=== PATIENT | male | born 1985 | race Caucasian/White ===

== ENCOUNTER 2023-04-09 12:37 | Inpatient (IN) ==
[2023-04-09 13:23] LABS: ABS Eosinophils 0.1 10^3/uL (0.0-0.5); ABS Lymphocytes 1.2 10^3/uL (1.0-4.8); ABS Monocytes 0.3 10^3/uL (0.0-1.1); ABS Neutrophils 4.1 10^3/uL (1.5-7.6); ABS Nucleated RBC 0.01 10^3/ul; Eosinophil % 2.3 %; Hematocrit 41.6 % (38-53); Hemoglobin 14.4 g/dL (13.2-16.3); Lymphocyte % 20.2 %; Mean Corpuscular Hemoglobin 31.8 pg (27-33); Mean Corpuscular Hgb Conc 34.7 g/dL (31-36); Mean Corpuscular Volume 91.6 fL (80-97); Mean Platelet Volume 7.8 fL (7.5-11.2); Nucleated Red Blood Cells % 0.1 /100 WBC (0.0-0.4); Platelet Count 339 10^3/uL (150-450); Red Blood Count 4.54 10^6/uL (4.06-5.63); Red Cell Distribution Width 13.1 % (12-17); White Blood Count 5.8 10^3/uL (3.6-10.2)
[2023-04-09 13:51] LABS: ALT 29 U/L (7-52); AST 18 U/L (13-39); Albumin 4.3 g/dL (3.2-5.2); Albumin/Globulin Ratio 1.5 (1-3); Alkaline Phosphatase 62 U/L (35-149); Anion Gap 7 mmol/L (2-16); Blood Urea Nitrogen 11 mg/dL (6-24); CO2 Carbon Dioxide 28 mmol/L (22-32); Calcium 9.1 mg/dL (8.6-10.3); Chloride 107 mmol/L (101-111); Creatinine, Serum 0.98 mg/dL (0.67-1.17); Globulin 2.8 g/dL (2-4); Glucose 88 mg/dL (70-100); Potassium 3.9 mmol/L (3.5-5.0); Sodium 142 mmol/L (135-145); Total Protein 7.1 g/dL (6.4-8.9); eGFR CKD-EPI 102.5 (>60)
[2023-04-09] MEDS ORDERED: Al Hydrox/Mg Hydrox/Simet LIQ 30 ML UDC PO PRN (14:38)
[2023-04-09 14:54] LABS: Acetaminophen < 15 mcg/mL; Alcohol, S 78 mg/dL (<13); Salicylate < 2.50 mg/dL (<30)
[2023-04-09 15:37] LABS: Urine Appearance Clear; Urine Bilirubin Negative (Negative); Urine Blood Negative (Negative); Urine Color Yellow; Urine Glucose Negative (Negative); Urine Ketones Negative (Negative); Urine Nitrite Negative (Negative); Urine Protein Negative (Negative); Urine Specific Gravity 1.014 (1.002-1.030); Urine Urobilinogen Negative (Negative)
[2023-04-09 16:03] LABS: Urine Benzodiazepine Screen None Detected (None Detect); Urine Cannabinoids Screen Presumptive Positive (None Detect); Urine Opiates Screen None Detected (None Detect)
[2023-04-10 09:17] LABS: HDL Cholesterol 61.3 mg/dL
[2023-04-11] MEDS ORDERED: Benzocaine/Menthol LOZ PO PRN (15:29)
[2023-04-13 09:35] VITALS: BP 151/88
== END 2023-04-13 16:35 | disposition home or self-care (01) | DRG 885 ==
LOC: ED 12:37 → EDHOLD 14:38 → BSU 14:38
PROVIDERS: ADMIT Psychiatry & Neurology Psychiatry; ATTEND Psychiatry & Neurology Psychiatry